=== PATIENT | female | born 1970 | race Caucasian/White ===

== ENCOUNTER 2017-04-29 08:37 | Emergency (ER) | payer BC ==
[2017-04-29] MEDS ORDERED: 0.9 % SODIUM CHLORIDE 1,000 ML BAG IV ONE (08:53)
[2017-04-29] MEDS ORDERED: ACETAMINOPHEN 325 MG TAB PO ONE (08:54)
--- NOTE | 2017-04-29 09:03 | Emergency Department Record ---
History of Present Illness - General Chief Complaint: Fever Stated Complaint: WEAK/FEVER Time Seen by Provider: 04/29/17 08:45 Source: Patient Mode of Arrival: Ambulatory Limitations: No limitations - History of Present Illness Initial Comments: The patient is here due to a one day hx of body aches, fever, headache, runny nose and dry cough. She did not get a flu shot this year. The patient denies any AP, dysuria, sputum production, ST or ear pain. She also states she feels very dehydrated but has had no vomiting, or diarrhea. MD Complaint: Fever, Malaise, Weakness Onset/Timin -: Days(s) Maximum Temperature: 100.6 F Temperature Source: Oral Associated Symptoms: Cough, Headache Treatments Prior to Arrival: Ibuprofen Treatment Prior to Arrival Comment:: 0715 - Related Data Home Medications Medication Instructions Recorded Confirmed Last Taken Aspirin [Aspir-Low] 81 mg PO DAILY 04/29/17 04/29/17 Unknown Previous Rx's Medication Instructions Recorded Oseltamivir Phosphate [Tamiflu] 75 mg PO BID #10 capsule 04/29/17 Allergies Allergy/AdvReac Type Severity Reaction Status Date / Time cephalexin [From Keflex] Allergy HIVES Verified 04/29/17 08:44 Penicillins Allergy HIVES Verified 04/29/17 08:44 Travel Screening - Travel/Exposure Within Last 30 Days Have you traveled within the last 30 days?: No Review of Systems Constitutional: Reports: Chills, Fever, Malaise Eyes: Denies: Eye discharge ENT: Denies: Congestion Respiratory: Reports: Cough. Denies: Dyspnea Cardiovascular: Denies: Arrhythmia, Chest pain Past Medical History - SOCIAL HISTORY Smoking Status: Never smoker Alcohol Use: Occasional Drug Use: None - RESPIRATORY Hx Respiratory Disorders: No - CARDIOVASCULAR Hx Cardio Disorders: No - NEURO Hx Neuro Disorders: No - GI Hx GI Disorders: No - Hx Genitourinary Disorders: No - ENDOCRINE Hx Endocrine Disorders: No - MUSCULOSKELETAL Hx Musculoskeletal Disorders: No - PSYCH Hx Psych Problems: No - HEMATOLOGY/ONCOLOGY Hx Hematology/Oncology Disorders: No Family Medical History Any Significant Family History?: Yes Hx Cancer: Father, Mother Hx Diabetes: Grandparents Physical Exam - General General Appearance: Alert, Oriented x3, Cooperative, No acute distress - Head Head exam: Atraumatic, Normocephalic, Normal inspection - Eye Eye exam: Normal appearance, PERRL - ENT ENT exam: Normal exam, Mucous membranes moist, Normal external ear exam, Normal orophraynx, TM's normal bilaterally Throat exam: Normal inspection. negative: Tonsillar erythema, Tonsillar exudate - Neck Neck exam: Normal inspection, Full ROM. negative: Meningismus (The neck is very supple.), Tenderness - Respiratory Respiratory exam: Normal lung sounds bilaterally. negative: Respiratory distress - Cardiovascular Cardiovascular Exam: Regular rate, Normal rhythm, Normal heart sounds - GI/Abdominal GI/Abdominal exam: Soft, Normal bowel sounds. negative: Tenderness - Extremities Extremities exam: Normal inspection, Full ROM, Normal capillary refill. negative: Tenderness - Neurological Neurological exam: Alert, Normal gait. negative: Abnormal gait, Motor sensory deficit Course Vital Signs 04/29/17 08:41 Temperature 98.4 F Pulse Rate 92 H Respiratory 18 Rate Blood Pressure 126/75 Pulse Ox 95 - Reevaluation(s) Reevaluation #1: The patient is doing better but still does have a mild HAMMER. She has no neck stiffness, meningismus and a neg Kernig's and Brudzinski's test. I did explain to her that her tests are all neg but I strongly feel the patient has Influenza. We will place her on tamiflu and have her off work 3 days. She is to return tot he ER for any high fever, worsening headache or any neck stiffness. 04/29/17 10:01 Medical Decision Making - Data Complexity MDM Data: Labs Ordered and/or Reviewed, X-Ray Ordered and/or Reviewed - Lab Data Result diagrams: 04/29/17 09:05 04/29/17 09:05 - Radiology Data Radiology results: Report reviewed (CXR: Neg) Disposition Disposition: Discharge Clinical Impression: Influenza Disposition: Home, Self-Care Condition: (2) Stable Instructions: Influenza (ED) Additional Instructions: Please alternate Tylenol and Motrin for pain and fever when needed. Take Tamiflu as directed. Off work 3 days. Please see a PCP for recheck later this week and return to the ER for any worsening head pain, fever, or any neck stiffness. Prescriptions: Oseltamivir Phosphate [Tamiflu] 75 mg PO BID #10 capsule Forms: Patient Portal Access Time of Disposition: 10:05 Quality - Quality Measures Quality Measures: N/A - Blood Pressure Screening View Details: Yes Does Patient Have Any of the Following: No Blood Pressure Classification: Pre-Hypertensive BP Reading Systolic Measurement: 126 Diastolic Measurement: 75 Screening for High Blood Pressure: < Pre-Hypertensive BP, F/U Documented > [ [id number]] Pre-Hypertensive Follow-up Interventions: Referral to alternative/primary care provider.
[2017-04-29 09:14] LABS: BASO % 0.2 % (0-6); EOS % 0.8 % (0-6); GRAN % 75.5 % (47-80); HEMATOCRIT 40.5 % (35.0-47.0); HEMOGLOBIN 13.5 gm/dl (11.6-16.0); MEAN CELL VOLUME 93.1 fl (81-97); MEAN CORPUSCULAR HGB CONC 33.3 g/dl (32-36); MEAN PLATELET VOLUME 10.7 fl (7.4-10.4); MONO % 12.5 % (0-9); PLATELET COUNT 207 K/uL (130-400); RED BLOOD COUNT 4.35 M/uL (3.80-5.40); RED CELL DISTRIBUTION WIDTH 12.2 % (11.5-14.5)
[2017-04-29 09:25] LABS: BLOOD UREA NITROGEN 12 mg/dL (6-20); CREATININE 0.8 mg/dL (0.5-0.9); EST GLOMERULAR FILTRATION RATE > 60 mL/min
[2017-04-29 09:26] LABS: TOTAL PROTEIN 7.4 g/dL (6.6-8.7)
[2017-04-29 09:28] LABS: GLUCOSE,RANDOM 101 mg/dL (74-109)
[2017-04-29 09:28] LABS: INFLUENZA A NEGATIVE (NEGATIVE); INFLUENZA B NEGATIVE (NEGATIVE)
[2017-04-29 09:31] LABS: ALB/GLOB RATIO 1.5 (1.1-1.8); ALBUMIN 4.4 g/dL (4.0-5.0); ALKALINE PHOSPHATASE 64 U/L (35-104); ALT/SGPT 37 U/L (<33); AST/SGOT 28 U/L (10.0-35.0)
--- NOTE | 2017-04-30 07:23 | RADIOLOGY REPORT ---
EXAM: CHEST, TWO VIEWS HISTORY: GENERALIZED WEAKNESS. CONGESTION, DEHYDRATION AND COUGH FOR ONE DAY. TECHNIQUE: Upright PA and lateral views of the chest were obtained. Comparison: None. FINDINGS: The cardiomediastinal silhouette is normal in size and configuration. The pulmonary vasculature is nondilated. The lungs and pleural spaces are clear. There are mild degenerative changes scattered within the visualized spine. IMPRESSION: NO RADIOGRAPHIC EVIDENCE OF ACUTE CARDIOPULMONARY DISEASE. JOB NUMBER: [id number] [facility]
== END 2017-04-29 10:19 | disposition home or self-care (01) ==
LOC: ER 08:37
DX: J10.1 Influenza due to other identified influenza virus with other respiratory manifestations (principal); R05 Cough; R53.81 Other malaise; R51 Headache; R53.1 Weakness; R50.81 Fever presenting with conditions classified elsewhere
CPT/HCPCS: 71046; 80053; 85025; 86140; 87400; 99284; J7030